=== PATIENT | male | born 1980 | race Caucasian/White ===

== ENCOUNTER 2022-01-14 19:27 | Emergency (ER) | payer OTHER ==
[2022-01-14 19:35] VITALS: BP 106/70; PULSE 97; RESP 18; TEMP 98; BMI 21.7
[2022-01-14] MEDS ORDERED: ACYCLOVIR 400 MG TABLET PO ONE (20:03)
[2022-01-14] MEDS ORDERED: ACYCLOVIR 400 MG TABLET ONE (20:13)
[2022-01-14] MEDS ORDERED: IBUPROFEN 600 MG TABLET (FP) PO ONE ×2 (20:36→20:41)
== END 2022-01-14 21:00 | disposition home or self-care (01) ==
LOC: FER 19:27
DX: K13.70 Unspecified lesions of oral mucosa (principal)
CPT/HCPCS: 36415; 87252; 99283-25